=== PATIENT | male | born 1960 | race Caucasian/White ===

== ENCOUNTER 2016-09-04 04:05 | Inpatient (IN) | payer OTHER ==
[~2016-09-04] VITALS: Ht 167.6 cm; Wt 63.8 kg
[~2016-09-04 04:05] MED LIST: GLIM2 PO; METF500T7 PO; OMEP10 PO; OXYC1TAB PO; PROM25 PO; PROP10 PO
[2016-09-04] MEDS ORDERED: GLIP5 PO (04:26)
[2016-09-04] MEDS ORDERED: RIFAX550 PO (04:29)
[2016-09-04] MEDS ORDERED: LACT30L PO (04:29)
[2016-09-04] MEDS ORDERED: METF500T4 PO (04:29)
[2016-09-04] MEDS ORDERED: FOLI1 PO (04:29)
[2016-09-04] MEDS ORDERED: PROP10 PO (04:29)
[2016-09-04] MEDS ORDERED: HYD25 PO (04:29)
[2016-09-04] MEDS ORDERED: SODIUM CHLORIDE 0.9% 1,000 ML IV ONE (04:30)
[2016-09-04] MEDS ORDERED: NITROGLYCERIN 2% (1 GM=INCH) PACKET TP ONE (04:30)
[2016-09-04] MEDS ORDERED: NITROGLYCERIN 400 MCG/SUBLINGUAL SPRAY 4.9 GM BOTTLE SL ONE (04:30)
[2016-09-04] MEDS ORDERED: ASPIRIN 81 MG CHEWABLE TABLET PO ONE (04:30)
[2016-09-04 04:52] LABS: BASOPHILS % (AUTO) 0.3 % (0.0-2.0); EOSINOPHILS % (AUTO) 3.3 % (1.0-6.0); HEMATOCRIT 39.4 % (41-53); HEMOGLOBIN 13.7 g/dL (13.5-17.5); LYMPHOCYTES # (AUTO) 0.9 K/uL (1.0-4.8); LYMPHOCYTES % (AUTO) 27.9 % (22.0-44.0); MEAN CORPUSCULAR HEMOGLOBIN 34.4 pg (26.0-34.0); MEAN CORPUSCULAR HGB CONC 34.7 G/dL (31.0-37.0); MEAN CORPUSCULAR VOLUME 99 fL (80-100); MONOCYTES # (AUTO) 0.3 K/uL (0.1-1.0); MONOCYTES % (AUTO) 8.3 % (2.0-9.0); NEUTROPHILS % (AUTO) 60.2 % (40.0-70.0); PLATELET COUNT (AUTO) 66 K/uL (150-450); RED BLOOD CELL COUNT(AUTO) 3.98 MIL/uL (4.50-5.90); WHITE BLOOD COUNT (AUTO) 3.3 K/uL (4.5-11.0)
[2016-09-04 05:13] LABS: ANION GAP 10 mmol/L (8-16); CALCIUM, TOTAL 8.4 mg/dL (8.8-10.5); CARBON DIOXIDE 27 mmol/L (22-29); CHLORIDE 102 mmol/L (98-107); CREATININE 0.54 mg/dL (0.60-1.30); GLOMERULAR FILTR. RATE CALC > 60 mL/min (>60); POTASSIUM 3.9 mmol/L (3.5-5.1); SODIUM SERUM 139 mmol/L (136-145); UREA NITROGEN, BLOOD 7 mg/dL (7-18)
[2016-09-04 05:18] LABS: ALANINE AMINOTRANSFERASE 44 U/L (12-78); ALBUMIN 3.4 g/dL (3.4-5.0); ASPARTATE AMINOTRANSFERASE 27 U/L (15-37); BILIRUBIN,TOTAL 1.4 mg/dL (0.1-1.0); TOTAL PROTEIN, SERUM 6.4 g/dL (6.4-8.2)
[2016-09-04 05:20] LABS: RBC MORPHOLOGY COMMENT ABNORMAL RBC MORPH
[2016-09-04] MEDS ORDERED: GlipiZIDE 5 MG TABLET PO ONE (06:00)
[2016-09-04] MEDS ORDERED: MetFORMIN HCL 500 MG TABLET PO ONE (06:00)
[2016-09-04 06:20] LABS: CREATINE KINASE, TOTAL 37 U/L (39-308)
[2016-09-04] MEDS: PRAVASTATIN SODIUM 10 MG TABLET PO SCH (08:44)
[2016-09-04] MEDS ORDERED: ONDANSETRON HCL 4 MG/2 ML VIAL IVP PRN ×2 (08:45→18:45)
[2016-09-04] MEDS ORDERED: ACETAMINOPHEN 325 MG TABLET PO PRN ×2 (08:45→18:45)
[2016-09-04] MEDS ORDERED: METOPROLOL SUCCINATE 25 MG ER TABLET PO SCH (09:00)
[2016-09-04 10:42] LABS: GLUCOSE,POINT OF CARE 324 MG/DL (70-110)
[2016-09-04 11:18] VITALS: BP 104/56
[2016-09-04] MEDS ORDERED: SESTAMIBI TC99M/UD ISOTOPE 1 EA INJ INJ ONE (12:05)
[2016-09-04 15:31] VITALS: BP 103/50
[2016-09-04] MEDS ORDERED: GlipiZIDE 5 MG TABLET PO SCH (17:30)
[2016-09-04] MEDS ORDERED: MetFORMIN HCL 500 MG TABLET PO SCH (18:00)
[2016-09-04] MEDS ORDERED: IPRATROPIUM BROMIDE 0.5 MG/2.5 ML NEB SOLUTION NEB PRN (18:45)
[2016-09-04] MEDS ORDERED: MAGNESIUM HYDROXIDE SUSPENSION 30 ML UDCUP PO PRN (18:45)
[2016-09-04] MEDS ORDERED: MORPHINE SULFATE 2 MG/ML SYRINGE IVP PRN (18:45)
[2016-09-04] MEDS ORDERED: HYDROCODONE/ACETAMINOPHEN 5-325 MG TABLET PO PRN (18:45)
[2016-09-04] MEDS ORDERED: DEXTROSE 50%-WATER 25 GM/50 ML SYRINGE IVP PRN (18:45)
[2016-09-04] MEDS ORDERED: ZOLPIDEM TARTRATE 10 MG TABLET PO PRN (18:45)
[2016-09-04 19:41] VITALS: BP 115/62
[2016-09-04] MEDS: DOCUSATE SODIUM 100 MG CAPSULE PO SCH (20:31)
[2016-09-04] MEDS: RIFAXIMIN 550 MG TABLET PO SCH (20:31)
[2016-09-04] MEDS: PROPRANOLOL HCL 10 MG TABLET PO SCH (20:31)
[2016-09-04] MEDS: HydrOXYzine HCL 25 MG TABLET PO SCH (20:32)
[2016-09-04] MEDS: INSULIN ASPART 100 UNITS/ML SQ PRN (20:54)
[2016-09-04] MEDS ORDERED: HydrOXYzine HCL 25 MG TABLET PO SCH (21:00)
[2016-09-04] MEDS ORDERED: RIFAXIMIN 550 MG TABLET PO SCH (21:00)
[2016-09-04] MEDS ORDERED: PROPRANOLOL HCL 10 MG TABLET PO SCH (21:00)
[2016-09-04] MEDS ORDERED: HydrALAZINE HCL 25 MG TABLET PO SCH (21:00)
[2016-09-04] MEDS ORDERED: BECL8.7A5 IH (21:02)
[2016-09-04] MEDS ORDERED: ONDA4 PO (21:02)
[2016-09-04] MEDS ORDERED: DSS100 PO (21:02)
[2016-09-04] MEDS ORDERED: INSU100V SQ (21:02)
[2016-09-04] MEDS ORDERED: INSLAN SQ (21:02)
[2016-09-05] VITALS (7 sets, daily range): BP systolic 100–124; BP diastolic 53–66
[2016-09-05] MEDS: NITROGLYCERIN 2% (1 GM=INCH) PACKET TP SCH ×3 (01:11→12:26)
[2016-09-05 01:42] LABS: GLUCOSE COMMENT 1 Received Meds; GLUCOSE,POINT OF CARE 354 MG/DL (70-110)
[2016-09-05] MEDS: GlipiZIDE 5 MG TABLET PO SCH ×2 (06:01→17:11)
[2016-09-05 06:07] LABS: BASOPHILS % (AUTO) 0.3 % (0.0-2.0); EOSINOPHILS % (AUTO) 4.8 % (1.0-6.0); HEMATOCRIT 37.9 % (41-53); HEMOGLOBIN 13.3 g/dL (13.5-17.5); LYMPHOCYTES # (AUTO) 1.1 K/uL (1.0-4.8); LYMPHOCYTES % (AUTO) 31.1 % (22.0-44.0); MEAN CORPUSCULAR HEMOGLOBIN 35.1 pg (26.0-34.0); MEAN CORPUSCULAR HGB CONC 35.2 G/dL (31.0-37.0); MEAN CORPUSCULAR VOLUME 100 fL (80-100); MONOCYTES # (AUTO) 0.3 K/uL (0.1-1.0); MONOCYTES % (AUTO) 8.7 % (2.0-9.0); NEUTROPHILS % (AUTO) 55.1 % (40.0-70.0); PLATELET COUNT (AUTO) 68 K/uL (150-450); RED CELL DISTRIBUTION WIDTH 14.7 % (11.5-14.5); WHITE BLOOD COUNT (AUTO) 3.6 K/uL (4.5-11.0)
[2016-09-05 07:32] LABS: ALANINE AMINOTRANSFERASE 39 U/L (12-78); ALBUMIN 2.9 g/dL (3.4-5.0); ANION GAP 7 mmol/L (8-16); ASPARTATE AMINOTRANSFERASE 22 U/L (15-37); BILIRUBIN,TOTAL 1.3 mg/dL (0.1-1.0); CALCIUM, TOTAL 7.9 mg/dL (8.8-10.5); CARBON DIOXIDE 28 mmol/L (22-29); CHLORIDE 106 mmol/L (98-107); CHOL/HDL RATIO 4.7 (4.2-7.3); CREATININE 0.58 mg/dL (0.60-1.30); GLOMERULAR FILTR. RATE CALC > 60 mL/min (>60); POTASSIUM 3.8 mmol/L (3.5-5.1); SODIUM SERUM 141 mmol/L (136-145); TOTAL PROTEIN, SERUM 5.5 g/dL (6.4-8.2); UREA NITROGEN, BLOOD 8 mg/dL (7-18)
[2016-09-05] MEDS ORDERED: SESTAMIBI TC99M/UD ISOTOPE 1 EA INJ INJ ONE (07:45)
[2016-09-05] MEDS ORDERED: REGADENOSON 0.4 MG/5 ML PF SYRINGE IVP ONE ×2 (07:46→18:29)
[2016-09-05] MEDS ORDERED: AMINOPHYLLINE 25 MG/ML 10 ML VIAL IVP ONE ×2 (07:55→18:29)
[2016-09-05] MEDS: DOCUSATE SODIUM 100 MG CAPSULE PO SCH (08:42)
[2016-09-05] MEDS: PROPRANOLOL HCL 10 MG TABLET PO SCH (08:42)
[2016-09-05] MEDS: PRAVASTATIN SODIUM 10 MG TABLET PO SCH (08:42)
[2016-09-05] MEDS: RIFAXIMIN 550 MG TABLET PO SCH (08:42)
[2016-09-05] MEDS: HydrOXYzine HCL 25 MG TABLET PO SCH (08:42)
[2016-09-05] MEDS ORDERED: LACTULOSE 20 GM/30 ML SOLUTION UDCUP PO SCH ×2 (09:00)
[2016-09-05] MEDS ORDERED: FOLIC ACID 1 MG TABLET PO SCH ×2 (09:00)
[2016-09-05] MEDS ORDERED: ASPIRIN 81 MG CHEWABLE TABLET PO SCH (09:00)
[2016-09-05] MEDS ORDERED: PANTOPRAZOLE SODIUM 40 MG/VIAL IVP SCH (09:00)
[2016-09-05] MEDS ORDERED: ASPIRIN 81 MG EC TABLET PO SCH (09:00)
[2016-09-05] MEDS ORDERED: INSULIN ASPART 100 UNITS/ML SQ ONE ×2 (12:00→14:15)
[2016-09-05] MEDS ORDERED: INSULIN GLARGINE,HUM.REC.ANLOG 100 UNITS/ML SQ ONE (12:30)
[2016-09-05] MEDS: INSULIN ASPART 100 UNITS/ML SQ PRN (17:33)
[2016-09-06 06:33] LABS: GLUCOSE COMMENT 1 Received Meds; GLUCOSE,POINT OF CARE 226 MG/DL (70-110)
[2016-09-06 10:47] LABS: GLUCOSE,POINT OF CARE 270 MG/DL (70-110)
[2016-09-06 10:47] LABS: GLUCOSE,POINT OF CARE 465 MG/DL (70-110)
== END 2016-09-05 18:30 | disposition home or self-care (01) | DRG 198 ==
LOC: EMS 04:06 → 5S 09:48
PROVIDERS: ADMIT Hospitalist; ATTEND Hospitalist
DX: I20.0 Unstable angina (principal); D69.6 Thrombocytopenia, unspecified; E11.22 Type 2 diabetes mellitus with diabetic chronic kidney disease; K74.60 Unspecified cirrhosis of liver; J44.9 Chronic obstructive pulmonary disease, unspecified; E78.00 Pure hypercholesterolemia, unspecified; E78.5 Hyperlipidemia, unspecified; I12.9 Hypertensive chronic kidney disease with stage 1 through stage 4 chronic kidney disease, or unspecified chronic kidney disease; N18.9 Chronic kidney disease, unspecified; Z87.891 Personal history of nicotine dependence
CPT/HCPCS: 78452; 82962; 83735; 93005; 93017; 93306; 99285; A9500; C9113; J0280; J1815; J2785; J7030